=== PATIENT | male | born 1985 | race African-American/Black ===

== ENCOUNTER 2017-09-10 13:42 | Emergency (ER) | END 2017-09-10 14:25 | disposition home or self-care (01) ==

== ENCOUNTER 2018-12-21 10:00 | Emergency (ER) | payer OTHER ==
[~2018-12-21] VITALS: Ht 167.6 cm; Wt 55.4 kg
[~2018-12-21 10:00] MED LIST: AMOX1TAB10 PO; IBUP-1561 PO
[2018-12-21 10:07] VITALS: BP 120/67; PULSE 91; RESP 20; Ht 167.6 cm; Wt 55.4 kg
[2018-12-21] MEDS ORDERED: TRAM50TA2 PO (11:46)
[2018-12-21] MEDS ORDERED: ACET500C5 PO (11:46)
--- NOTE | 2018-12-21 11:52 | ERD ---
ER Documentation Chief Complaint Chief Complaint Complains of a dental problems x 2 days HPI 33-year-old male with no reported past medical surgical history who presents with 2-day complaint of dental pain. States he has bilateral tooth pain over the past several days. States he has a history of frequent cavities and feels he may have another cavity. He has not followed up with a dentist. He otherwise is without complaint denying fevers, chills, drainage from mouth, or any other concerning symptoms. Patient with poor dentition and likely would benefit from referral to dentist for care. ROS All systems reviewed and are negative except as per history of present illness. Medications Home Meds Active Scripts Acetaminophen* (Tylophen*) 500 Mg Capsule, 1 CAP PO Q6H PRN for PAIN AND OR ELEVATED TEMP, #20 CAP Prov:KISHA ROPER PA-C 12/21/18 Tramadol HCl (Tramadol HCl) 50 Mg Tablet, 50 MG PO Q6 PRN for PAIN, #7 TAB Prov:KISHA ROPER PA-C 12/21/18 Ibuprofen* (Motrin*) 400 Mg Tab, 400 MG PO Q6, #30 TAB Prov:HUSSEIN CASTILLO PA-C 09/10/17 Amoxicillin/Potassium Clav (Amox-Clav 875-125 mg Tablet) 875-125 mg Tab, 1 TAB PO BID for 10 Days, #20 TAB Prov:HUSSEIN CASTILLO PA-C 09/10/17 PMhx/Soc Medical and Surgical Hx: pt denies Medical Hx, pt denies Surgical Hx Hx Tobacco Use: Yes Smoking Status: Current every day smoker FmHx Family History: No diabetes, No coronary disease, No other Physical Exam Vitals Vital Signs Date Temp Pulse Resp B/P (MAP) Pulse Ox O2 O2 Flow FiO2 Time Delivery Rate 12/21/18 97.6 91 20 120/67 100 10:07 (84) Physical Exam Const: No acute distress Head: Atraumatic Eyes: Normal Conjunctiva ENT: Normal External Ears, Nose and Mouth, significant tooth decay, dentition, no areas of swelling or edema consistent with abscess, no retropharyngeal swelling or edema, exudates. Neck: Full range of motion. No meningismus. Resp: Clear to auscultation bilaterally Cardio: Regular rate and rhythm, no murmurs Abd: Soft, non tender, non distended. Normal bowel sounds Skin: No petechiae or rashes Back: No midline or flank tenderness Ext: No cyanosis, or edema Neur: Awake and alert Psych: Normal Mood and Affect Procedures/MDM 33-year-old male who presents with complaint of dental pain. He has no signs or symptoms of systemic infection, is afebrile, physical exam without evidence of abscess, mastoiditis, concerning sinusitis, or any other intraoral infection. Patient likely has impacted tooth which will require removal as he has poor dentition and history of frequent cavities. Patient will be discharged with outpatient follow-up and referral to [facility]. Evaluate appropriate pain medication. DISPOSITION PLAN: We discussed follow up with the patient's primary care doctor within 24 to 48 hours. Patient counseled regarding my diagnostic impression and care plan. Prior to discharge all questions answered. Pt agrees with treatment plan and understands strict return precautions. Precautionary instructions provided including instructions to return to the ER if not improving or for any worsening or changing symptoms or concerns. Disclaimer: Inadvertent spelling and grammatical errors are likely due to EHR/dictation software use and do not reflect on the overall quality of patient care. Also, please note that the electronic time recorded on this note does not necessarily reflect the actual time of the patient encounter. Departure Diagnosis: Primary Impression: Toothache Condition: Stable Referrals: [facility] YOU HAVE RECEIVED A MEDICAL SCREENING EXAM AND THE RESULTS INDICATE THAT YOU DO NOT HAVE A CONDITION THAT REQUIRES URGENT TREATMENT IN THE EMERGENCY DEPARTMENT. FURTHER EVALUATION AND TREATMENT OF YOUR CONDITION CAN WAIT UNTIL YOU ARE SEEN IN YOUR DOCTORS OFFICE WITHIN THE NEXT 1-2 DAYS. IT IS YOUR RESPONSIBILITY TO MAKE AN APPOINTMENT FOR FOLOW-UP CARE. IF YOU HAVE A PRIMARY DOCTOR --you should call your primary doctor and schedule an appointment IF YOU DO NOT HAVE A PRIMARY DOCTOR YOU CAN CALL OUR PHYSICIAN REFERRAL HOTLINE AT IF YOU CAN NOT AFFORD TO SEE A PHYSICIAN YOU CAN CHOSE FROM THE FOLLOWING [facility]ICS [facility] [address] [facility] [address] [facility] [address] [facility] [address] [facility] [address] [facility] [address] [facility] ([facility] walk in clinic) Additional Instructions: Call your primary care doctor TOMORROW for an appointment during the next 2-3 days.See the doctor sooner or return here if your condition worsens before your appointment time. You need to make an appointment to see a dentist as you likely need tooth extraction. KISHA ROPER PA-C December 21, 2018 11:52
== END 2018-12-21 12:00 | disposition home or self-care (01) ==
LOC: FTE 10:00
DX: K08.89 Other specified disorders of teeth and supporting structures (principal); F17.210 Nicotine dependence, cigarettes, uncomplicated
CPT/HCPCS: 99282

== ENCOUNTER 2019-03-24 10:33 | Emergency (ER) | payer OTHER ==
[~2019-03-24] VITALS: Ht 180.3 cm; Wt 53.5 kg
[~2019-03-24 10:33] MED LIST changes: +ACET500C5 PO; +CLIN300C10 PO; +TRAM50TA2 PO
[2019-03-24 10:42] VITALS: BP 94/64; PULSE 89; RESP 18; Ht 180.3 cm; Wt 53.5 kg
--- NOTE | 2019-03-24 11:52 | ERD ---
ER Documentation Chief Complaint Chief Complaint dental pain possible cavity HPI 33-year-old male with no reported past medical history who presents with complaint of bilateral dental pain. Patient states he sneezed may have a cavity as he is has significant tooth decay. He has not made an appointment with a dentist yet but plans to. Requesting information about dentist at this time. He otherwise denies fevers, chills, discharge from mouth, significant jaw pain, inability to eat or drink, dysphonia or dysphasia. Has taken some ibuprofen for his symptoms. ROS All systems reviewed and are negative except as per history of present illness. Medications Home Meds Active Scripts Tramadol HCl (Tramadol HCl) 50 Mg Tablet, 50 MG PO Q6 PRN for PAIN, #20 TAB Prov:KISHA ROPER PA-C 03/24/19 Clindamycin Hcl* (Clindamycin Hcl*) 300 Mg Capsule, 300 MG PO TID for 7 Days, CAP Prov:KISHA ROPER-C 03/24/19 Acetaminophen* (Tylophen*) 500 Mg Capsule, 1 CAP PO Q6H PRN for PAIN AND OR ELEVATED TEMP, #20 CAP Prov:KISHA ROPERC 12/21/18 Tramadol HCl (Tramadol HCl) 50 Mg Tablet, 50 MG PO Q6 PRN for PAIN, #7 TAB Prov:KISHA ROPERC 12/21/18 Ibuprofen* (Motrin*) 400 Mg Tab, 400 MG PO Q6, #30 TAB Prov:HUSSEIN CASTILLO PA-C 09/10/17 Amoxicillin/Potassium Clav (Amox-Clav 875-125 mg Tablet) 875-125 mg Tab, 1 TAB PO BID for 10 Days, #20 TAB Prov:HUSSEIN CASTILLO PA-C 09/10/17 Allergies Allergies: Coded Allergies: No Known Allergy (Unverified , 03/24/19) PMhx/Soc Medical and Surgical Hx: pt denies Medical Hx, pt denies Surgical Hx Hx Alcohol Use: No Hx Substance Use: No Hx Tobacco Use: Yes Smoking Status: Current every day smoker FmHx Family History: No diabetes, No coronary disease, No other Physical Exam Vitals Vital Signs Date Temp Pulse Resp B/P (MAP) Pulse Ox O2 O2 Flow FiO2 Time Delivery Rate 03/24/19 98.5 89 18 94/64 (74) 98 10:42 Physical Exam I have reviewed the triage vital signs. Const: Well nourished, well developed, appears stated age Eyes: PERRL, no conjunctival injection HENT: NCAT, Neck supple without meningismus, poor dentition, significant tooth decay to bilateral molars, no cheek swelling, no lymphadenopathy CV: RRR, Warm, well-perfused extremities RESP: CTAB, Unlabored respiratory effort GI: soft, non-tender, non-distended, no masses MSK: No gross deformities appreciated Skin: Warm, dry. No rashes Neuro: grossly non focal Psych: Appropriate mood and affect. Procedures/MDM 33-year-old male who presents with bilateral toothache. On exam patient with significant tooth decay. He warrants evaluation by dentist for tooth extraction. I have low suspicion for any acute invasive process such as underlying infection, with angina, peritonsillar abscess that warrants further emergent care such as admission for IV antibiotics, imaging or other dialysis such care. Will cover patient with clindamycin antibiotic and give appropriate pain medications. Advised patient to make appointment with your dentist as soon as possible. Patient states he has [employer] insurance and can do so. DISPOSITION PLAN: We discussed follow up with the patient's primary care doctor within 24 to 48 hours. Patient counseled regarding my diagnostic impression and care plan. Prior to discharge all questions answered. Pt agrees with treatment plan and understands strict return precautions. Precautionary instructions provided including instructions to return to the ER if not improving or for any worsening or changing symptoms or concerns. Disclaimer: Inadvertent spelling and grammatical errors are likely due to EHR/dictation software use and do not reflect on the overall quality of patient care. Also, please note that the electronic time recorded on this note does not necessarily reflect the actual time of the patient encounter. Departure Diagnosis: Primary Impression: Toothache Condition: Stable Patient Instructions: Dental Pain Referrals: [facility] YOU HAVE RECEIVED A MEDICAL SCREENING EXAM AND THE RESULTS INDICATE THAT YOU DO NOT HAVE A CONDITION THAT REQUIRES URGENT TREATMENT IN THE EMERGENCY DEPARTMENT. FURTHER EVALUATION AND TREATMENT OF YOUR CONDITION CAN WAIT UNTIL YOU ARE SEEN IN YOUR DOCTORS OFFICE WITHIN THE NEXT 1-2 DAYS. IT IS YOUR RESPONSIBILITY TO MAKE AN APPOINTMENT FOR FOLOW-UP CARE. IF YOU HAVE A PRIMARY DOCTOR --you should call your primary doctor and schedule an appointment IF YOU DO NOT HAVE A PRIMARY DOCTOR YOU CAN CALL OUR PHYSICIAN REFERRAL HOTLINE AT IF YOU CAN NOT AFFORD TO SEE A PHYSICIAN YOU CAN CHOSE FROM THE FOLLOWING [facility] CL[facility]ICS [facility] [address] [facility] [address] [facility] [address] [facility] [address] [facility] [address] [facility]. [facility]. [address] Additional Instructions: Call your primary care doctor TOMORROW for an appointment during the next 2-3 days.See the doctor sooner or return here if your condition worsens before your appointment time. You likely need tooth extractions. You need to make an appointment with a dentist as soon as possible. Continue take antibiotics as prescribed until you see your dentist. KISHA ROPER PA-C Mar 24, 2019 11:52
== END 2019-03-24 12:10 | disposition home or self-care (01) ==
LOC: FTE 10:33
DX: K08.89 Other specified disorders of teeth and supporting structures (principal); F17.210 Nicotine dependence, cigarettes, uncomplicated
CPT/HCPCS: 99283